=== PATIENT | female | born 1995 | race Hispanic/Latino ===

== ENCOUNTER 2019-01-02 22:45 | Emergency (ER) | payer OTHER ==
[~2019-01-02] VITALS: Ht 152.4 cm; Wt 62.9 kg
[2019-01-02 22:46] VITALS: BP 113/72
[2019-01-02] MEDS ORDERED: DOXY-350 PO (22:52)
[2019-01-03 00:59] LABS: BASO # 0.1 10^3/uL (0.0-0.2); BASO % 0.8 % (0.0-1.0); EOS # 0.1 10^3/uL (0.0-0.50); EOS % 1.3 % (0.0-3.0); HEMOGLOBIN 12.6 g/dl (13.5-17.5); LYMPH # 2.3 10^3/uL (1.5-6.5); LYMPH % 25.2 % (24.0-44.0); MEAN CORPUSCULAR HEMOGLOBIN 31.2 pg (27.0-33.0); MEAN CORPUSCULAR HGB CONC 34.1 g/dl (32.0-36.5); MEAN CORPUSCULAR VOLUME 91.6 fl (80.0-96.0); MONO # 0.6 10^3/uL (0.0-0.8); MONO % 6.4 % (0.0-5.0); NEUTROPHILS % 66.1 % (36.0-66.0); PLATELET COUNT, AUTOMATED 246 10^3/uL (150-450); RED BLOOD COUNT 4.04 10^6/uL (4.30-6.10); WHITE BLOOD COUNT 9.1 10^3/uL (4.0-10.0)
[2019-01-03] MEDS ORDERED: GI COCKTAIL 50ML BTL(HYOSCYAMINE/MAALOX/LIDOCAINE VISCOUS)(1:3:1) PO ONE (01:00)
[2019-01-03 01:25] LABS: ALBUMIN 3.9 GM/DL (3.2-5.2); ALT/SGPT 24 U/L (12-78); BILIRUBIN,DIRECT 0.2 MG/DL (0.0-0.2); BILIRUBIN,TOTAL 0.7 MG/DL (0.2-1.0); BLOOD UREA NITROGEN 16 MG/DL (7-18); CARBON DIOXIDE LEVEL 26 MEQ/L (21-32); CHLORIDE LEVEL 105 MEQ/L (98-107); CREATININE FOR GFR 0.68 MG/DL (0.55-1.30); GLOMERULAR FILTRATION RATE > 60.0 (>60); GLUCOSE, FASTING 90 MG/DL (70-100); LIPASE 170 U/L (73-393); POTASSIUM SERUM 4.3 MEQ/L (3.5-5.1); SODIUM LEVEL 140 MEQ/L (136-145); TOTAL PROTEIN 7.3 GM/DL (6.4-8.2)
[2019-01-03] MEDS ORDERED: PEPC1TAB5 PO (02:08)
[2019-01-03] MEDS ORDERED: OMEP40CA97 PO (02:08)
[2019-01-03] MEDS ORDERED: FAMOTIDINE 20 MG TAB PO ONE (02:15)
[2019-01-03] MEDS ORDERED: OMEPRAZOLE 20 MG CAP PO ONE (02:15)
[2019-05-16] MEDS ORDERED: VITA500T PO (14:51)
[2019-05-16] MEDS ORDERED: CETI10CH PO (14:51)
[2019-05-16] MEDS ORDERED: PANT40TA3 PO (14:51)
[2019-05-16] MEDS ORDERED: SEASTAB PO (14:55)
== END 2019-01-03 02:39 | disposition home or self-care (01) ==
LOC: M ED 22:45 → EDSEX 22:45 → M ED 01-03 02:39
DX: R10.13 Epigastric pain (principal); R19.7 Diarrhea, unspecified

== ENCOUNTER → 2019-03-25 | Outpatient (REF) | payer OTHER ==
[~2019-03-25] MED LIST: DOXY-350 PO; OMEP40CA97 PO; PEPC1TAB5 PO
[2019-03-25 18:12] LABS: CHLAMYDIA DNA AMPLIFICATION NEGATIVE (NEGATIVE); GC DNA AMPLIFICATION NEGATIVE (NEGATIVE)
== END ==
LOC: M SFHCLERA 13:38
PROVIDERS: ATTEND Nurse Practitioner Family
DX: R30.0 Dysuria (principal)

== ENCOUNTER 2019-05-21 10:51 | Day surgery (SDC) | payer OTHER ==
[~2019-05-21] VITALS: Ht 152.4 cm; Wt 65.3 kg
[~2019-05-21 10:51] MED LIST changes: +CETI10CH PO; +LIDOCAINE 2% INJ 100 MG/5 ML SDV (FOR ANES.) As Ordered ONE; +NS 1,000 ML IV SCH; +PANT40TA3 PO; +PROPOFOL 200 MG/20 ML VIAL As Ordered ONE; +SEASTAB PO; +VITA500T PO
[2019-05-21] MEDS ORDERED: PROPOFOL 200 MG/20 ML VIAL As Ordered ONE (12:38)
[2019-05-21] MEDS ORDERED: LIDOCAINE 2% INJ 100 MG/5 ML SDV (FOR ANES.) As Ordered ONE (12:38)
[2019-05-21] MEDS ORDERED: fentaNYL 100 MCG/2 ML INJECTION (J3010) As Ordered ONE (12:58)
--- NOTE | 2019-05-21 13:10 | ROOR ---
Patient Name: Margarita Ashby Procedure Date: 05/21/2019 12:55 PM Date of : 1995 Age: 24 Room: [facility], [facility]IN [facility] Gender: Female Note Status: Finalized Procedure: Upper Endoscopy + Biopsies Indications: Upper abdominal pain Providers: Brayden Gonzalez MD Referring MD: UYEN KELLY MD Requesting Provider: Medicines: Monitored Anesthesia Care Complications: No immediate complications. Procedure: Pre-Anesthesia Assessment: - The heart rate, respiratory rate, oxygen saturations, blood pressure, adequacy of pulmonary ventilation, and response to care were monitored throughout the procedure. The Endoscope was introduced through the mouth, and advanced to the second part of duodenum. The upper GI endoscopy was accomplished without difficulty. The patient tolerated the procedure well. Findings: The Z-line was variable and was found 35 cm from the incisors. Multiple biopsies were obtained with cold forceps for evaluation to rule out Evans's Esophagus randomly at the gastroesophageal junction. A small hiatal hernia was present. No other significant abnormalities were identified in a careful examination of the stomach. Biopsies were taken with a cold forceps in the gastric antrum for Helicobacter pylori testing. The exam of the duodenum was otherwise normal. Impression: - Z-line variable, 35 cm from the incisors. - Small hiatal hernia. - Multiple biopsies were obtained at the gastroesophageal junction. - Biopsies were taken with a cold forceps for Helicobacter pylori testing. - The examination was otherwise normal. Recommendation: - Patient has a contact number available for emergencies. The signs and symptoms of potential delayed complications were discussed with the patient. Return to normal activities tomorrow. Written discharge instructions were provided to the patient. - High fiber diet. - Discharge patient to home. - Follow an antireflux regimen. - Continue present medications. - Await pathology results. - Telephone GI clinic for pathology results in 1 week. - Return to referring physician. - The findings and recommendations were discussed with the patient's family. Brayden Gonzalez MD Brayden Gonzalez MD 05/21/2019 1:10:29 PM Electronically signed by Brayden Gonzalez MD Number of Addenda: 0 Note Initiated On: 05/21/2019 12:55 PM Estimated Blood Loss: Estimated blood loss: none.
[2019-05-21 13:30] VITALS: BP 106/67
== END 2019-05-21 13:53 | disposition home or self-care (01) ==
LOC: M OPP 10:51
PROVIDERS: ATTEND Internal Medicine Gastroenterology
DX: K22.8 Other specified diseases of esophagus (principal); K44.9 Diaphragmatic hernia without obstruction or gangrene; K21.9 Gastro-esophageal reflux disease without esophagitis; R10.10 Upper abdominal pain, unspecified; Z79.899 Other long term (current) drug therapy
CPT/HCPCS: 43239; 88305; J3010

== ENCOUNTER 2019-06-03 21:17 | Emergency (ER) | payer OTHER ==
[~2019-06-03] VITALS: Ht 152.4 cm; Wt 64.5 kg
[~2019-06-03 21:17] MED LIST changes: -LIDOCAINE 2% INJ 100 MG/5 ML SDV (FOR ANES.) As Ordered ONE; -NS 1,000 ML IV SCH; -PROPOFOL 200 MG/20 ML VIAL As Ordered ONE
[2019-06-03 22:21] LABS: BASO # 0.1 10^3/uL (0.0-0.2); BASO % 0.7 % (0.0-1.0); EOS # 0.1 10^3/uL (0.0-0.5); EOS % 1.4 % (0.0-3.0); HEMATOCRIT 38.6 % (36.0-47.0); LYMPH # 2.4 10^3/uL (1.5-5.0); LYMPH % 31.1 % (24.0-44.0); MEAN CORPUSCULAR HEMOGLOBIN 30.4 pg (27.0-33.0); MEAN CORPUSCULAR HGB CONC 33.7 g/dl (32.0-36.5); MEAN CORPUSCULAR VOLUME 90.2 fl (80.0-96.0); MONO # 0.4 10^3/uL (0.0-0.8); MONO % 5.8 % (0.0-5.0); NEUTROPHILS # 4.6 10^3/uL (1.5-8.5); NEUTROPHILS % 60.6 % (36.0-66.0); PLATELET COUNT, AUTOMATED 253 10^3/uL (150-450); RED BLOOD COUNT 4.28 10^6/uL (4.00-5.40); WHITE BLOOD COUNT 7.6 10^3/uL (4.0-10.0)
[2019-06-03] MEDS ORDERED: IBUPROFEN 600 MG TAB PO ONE (22:30)
[2019-06-03 22:33] LABS: ALBUMIN 3.6 GM/DL (3.2-5.2); ALT/SGPT 20 U/L (12-78); BILIRUBIN,DIRECT 0.1 MG/DL (0.0-0.2); BILIRUBIN,TOTAL 0.3 MG/DL (0.2-1.0); BLOOD UREA NITROGEN 19 MG/DL (7-18); CALCIUM LEVEL 8.5 MG/DL (8.5-10.1); CARBON DIOXIDE LEVEL 27 MEQ/L (21-32); CHLORIDE LEVEL 105 MEQ/L (98-107); CREATININE FOR GFR 0.81 MG/DL (0.55-1.30); GLOMERULAR FILTRATION RATE > 60.0 (>60); GLUCOSE, FASTING 103 MG/DL (70-100); LIPASE 226 U/L (73-393); POTASSIUM SERUM 3.9 MEQ/L (3.5-5.1); SODIUM LEVEL 139 MEQ/L (136-145); TOTAL PROTEIN 7.4 GM/DL (6.4-8.2)
--- NOTE | 2019-06-03 23:53 | REPVR ---
PROCEDURE INFORMATION: Exam: US Pelvis, Transvaginal Exam date and time: 06/03/2019 11:06 PM Age: 24 years old Clinical indication: Pelvic pain; Additional info: Left pelvic pain TECHNIQUE: Imaging protocol: Real-time transvaginal pelvic ultrasound with image documentation. Transvaginal imaging was used for better evaluation of the endometrium and adnexa. COMPARISON: No relevant prior studies available. FINDINGS: Uterus/cervix: Uterus measures 8 x 3.7 x 4.4 cm. Endometrial echo complex measures 13 mm. Correlation with menstrual history suggested. Also noted is a 0.8 x 0.5 x 1.1 cm polypoid mass within the endometrial cavity. Further evaluation with sonohysterogram may be necessary. Right adnexa: Right ovary measures 2.2 x 1.6 x 1.5 cm. Normal blood flow. Left adnexa: Left ovary measures 2.2 x 1.8 x 1.5 cm. Normal blood flow. Free fluid: None. IMPRESSION: Endometrial echo complex measures 13 mm. Correlation with menstrual history suggested. Also noted is a polypoid mass within the endometrial cavity. Further evaluation with sonohysterogram may be necessary. Electronically signed by: Usman Hernadez On 06/03/2019 23:52:43 PM
[2019-06-04 00:01] LABS: CHLAMYDIA DNA AMPLIFICATION NEGATIVE (NEGATIVE); GC DNA AMPLIFICATION NEGATIVE (NEGATIVE)
[2019-06-04] MEDS ORDERED: FLAG500T PO (00:22)
[2019-06-04] MEDS ORDERED: metroNIDAZOLE (FLAGYL) 500 MG TAB PO ONE (00:30)
[2019-06-04 00:31] VITALS: BP 110/61
--- NOTE | 2019-06-08 16:41 | ED PDOC ---
Post-Departure Follow-Up dr kumar and santhosh nunez faxed formal report of pelvic us for fu Rambo Rogers MD Jun 08, 2019 16:41
== END 2019-06-04 00:32 | disposition home or self-care (01) ==
LOC: M ED 21:17
DX: N85.8 Other specified noninflammatory disorders of uterus (principal); N76.0 Acute vaginitis; R30.0 Dysuria; Z79.3 Long term (current) use of hormonal contraceptives; Z79.899 Other long term (current) drug therapy

== ENCOUNTER → 2020-02-02 | Outpatient (CLI) | payer OTHER ==
[~2020-02-02] MED LIST changes: +FLAG500T PO; +MULTCAP PO; +PANT40TA29 PO; -PANT40TA3 PO; +VITA-243 PO; -VITA500T PO
--- NOTE | 2020-02-02 14:19 | REPVR ---
PROCEDURE INFORMATION: Exam: US Pelvis Complete, Transabdominal and US Duplex Artery or Vein, Ovaries, Limited Exam date and time: 02/02/2020 2:00 PM Age: 24 years old Clinical indication: Pelvic pain; Additional info: Right lower quadrant abdominal tenderness TECHNIQUE: Imaging protocol: Real-time transabdominal pelvic ultrasound with image documentation. Real-time duplex ultrasound scan of the arterial or venous flow of the ovaries with B-mode, color Doppler flow and spectral waveform analysis. Complete Pelvis, Limited Duplex. COMPARISON: US PELVIC NON-OB COMPLETE 06/03/2019 11:03 PM FINDINGS: Uterus/cervix: The uterus measures 8.1 x 3 x 4.8 cm. The endometrial stripe measures 0.2 cm, within normal limits. No uterine mass is imaged. Right adnexa: The right ovary measures 2.4 x 1.3 x 1.8 cm. The right ovary demonstrates color Doppler blood flow. The right ovary demonstrates a low resistance pulsatile spectral Doppler waveform. No right adnexal mass is imaged. No evidence of right ovarian torsion. Left adnexa: The left ovary measures 3.6 x 2 x 1.6 cm. The left ovary demonstrates color Doppler blood flow. The left ovary demonstrates a low resistance pulsatile spectral Doppler waveform. No evidence of left ovarian torsion. Free fluid: No free intraperitoneal fluid is imaged. Bladder: The imaged portions of the urinary bladder are unremarkable. IMPRESSION: No acute findings. Electronically signed by: Josh Sales On 02/02/2020 14:19:33 PM
== END ==
LOC: M RAD 13:16
PROVIDERS: ATTEND Physician Assistant
DX: R10.31 Right lower quadrant pain (principal)

== ENCOUNTER 2020-03-31 06:01 | Day surgery (SDC) | payer OTHER ==
[~2020-03-31] VITALS: Ht 154.9 cm; Wt 64.0 kg
[~2020-03-31 06:01] MED LIST changes: +LIDOCAINE 1% MDV 20ML VIAL SQ PRN; +LR 1,000 ML IV ONE; +ceFAZolin SOD 2 GM in IV 1 EA IV ONE
[2020-03-31] MEDS ORDERED: BUPIVACAINE HCL 0.5% 30 ML VIAL As Ordered ONE (07:08)
[2020-03-31] MEDS ORDERED: LIDOCAINE 1% SDV 30ML VIAL As Ordered ONE (07:09)
[2020-03-31] MEDS ORDERED: dexameTHASONE 4 MG/ML 1ML VIAL (J1100 PER 1MG) As Ordered ONE (07:09)
[2020-03-31] MEDS ORDERED: propofoL 200 MG/20 ML VIAL As Ordered ONE (07:21)
[2020-03-31] MEDS ORDERED: LIDOCAINE 2% 100MG/5ML SDV (FOR ANES.) As Ordered ONE (07:21)
[2020-03-31] MEDS ORDERED: fentaNYL 100 MCG/2 ML INJECTION (J3010) As Ordered ONE (07:22)
[2020-03-31] MEDS ORDERED: MIDAZOLAM INJ 2MG/2ML VIAL (J2250 PER 1MG) As Ordered ONE (07:22)
[2020-03-31] MEDS ORDERED: ACETAMINOPHEN 1000MG 100ML IV BTL (OFIRMEV) (J0131 PER 10MG) As Ordered ONE (07:55)
[2020-03-31] MEDS ORDERED: LACRILUBE (AKWA TEARS) OPHTH OINT 3.5 GM As Ordered ONE (07:55)
[2020-03-31] MEDS ORDERED: KETOROLAC 60MG 2ML VIAL As Ordered ONE (08:25)
[2020-03-31] MEDS ORDERED: ONDANSETRON 4MG/2ML VIAL As Ordered ONE (08:25)
[2020-03-31 09:35] VITALS: BP 104/57
--- NOTE | 2020-03-31 14:28 | RO ---
DATE OF SURGERY: 03/31/2020 SURGEON: Ravindra Morris DPM BELLPERSON: None. PREOPERATIVE DIAGNOSIS: Right foot bunion, hallux valgus. POSTOPERATIVE DIAGNOSIS: Right foot bunion, hallux valgus. PROCEDURE: Right foot bunionectomy with first metatarsal osteotomy. ANESTHESIA: Monitored anesthesia care. PREOPERATIVE INJECTION: 18 cc of a one-to-one mixture of 1% lidocaine plain and 0.5% Marcaine plain. ESTIMATED BLOOD LOSS: Minimal. MATERIALS: Arthrex 3.5 headless compression screw, Arthrex DynaNite staple, 3-0 Vicryl, 4-0 Vicryl, 4-0 nylon. INJECTABLES: 1 cc Decadron 4 mg/mL. COMPLICATIONS: None. CONDITION: Stable. INDICATIONS: Margarita is a 24-year-old female who presents to [facility] with a painful bunion to her right foot. She presents today for surgical correction. The patient's side and site were identified and marked preoperatively. Consent was reviewed and obtained. All risks, complications, and alternatives to the procedure were explained to the patient in detail and all questions were answered. DESCRIPTION OF PROCEDURE: The patient was brought to the operating room and placed on the operating room table in the supine position. Monitored anesthesia care was delivered by the anesthesia team. Preoperative injection of 18 cc of a one-to-one mixture of 1% lidocaine plain and 0.5% Marcaine plain were injected to the right foot. The right foot was prepped and draped in normal sterile fashion. The tourniquet was applied to the right ankle and inflated to 215 mmHg. A dorsal median incision was drawn and carried through with a #15 blade over the first metatarsophalangeal joint. Dissection was carried until the first metatarsophalangeal joint capsule was identified. Bovie was used to maintain hemostasis. A T-capsulotomy was performed, exposing the metatarsal head. Following this, a lateral release was performed releasing the adductor tendon and sesamoidal ligaments. The McGlamry elevator was used to release the plantar structures. Following this, the median eminence was resected with the sagittal saw. An osteotomy was performed at the metatarsal head transposing it laterally. This was fixated with an Arthrex 3.5 headless compression screw. The remaining bone ledge was resected with the sagittal saw and smoothed with a rasp. Following this, attention was paid to the proximal phalanx. Dissection was carried over the proximal phalanx in the overlying soft tissue attachments to the bone, where it was freed. Using a sagittal saw, a medial wedge of cortex was removed. The gap was closed and fixated with a DynaNite staple, effectively placing the toe into a more medial position. The site was irrigated with normal saline. A small wedge of capsule was removed from the medial capsule. The capsule was repaired with 3-0 Vicryl, subcutaneous closure with 4-0 Vicryl, and skin closure with 4-0 nylon. Then, 1 cc of Decadron was injected. Sterile dressings were applied. The tourniquet was deflated. The patient was brought to PACU with vital signs stable and neurovascular status intact. She will be partial weightbearing to her right foot. She will follow up in the office in two days. ZORAN
== END 2020-03-31 09:51 | disposition home or self-care (01) ==
LOC: M SDC 06:01
PROVIDERS: ATTEND Podiatrist Foot & Ankle Surgery
DX: M20.11 Hallux valgus (acquired), right foot (principal)
CPT/HCPCS: 28299; 81025; 88300; 97116; C1713; J0131; J0690; J1100; J1885; J2250; J2405; J3010